=== PATIENT | female | born 1950 | race Caucasian/White ===

== ENCOUNTER 2016-08-05 20:57 | Emergency (ER) | payer MEDICARE, MEDICAID ==
[~2016-08-05] VITALS: Ht 157.5 cm; Wt 65.8 kg
[~2016-08-05 20:57] MED LIST: BENZ100C PO; LEVO750T5 PO; PRED50TA PO; PROAIR HFA8.5 GM INH
[2016-08-05 21:15] VITALS: BP 178/94
[2016-08-05] MEDS ORDERED: FAMO-63 PO (21:33)
[2016-08-05] MEDS ORDERED: PRED-220 PO (21:33)
--- NOTE | 2016-08-05 21:33 | PHYS DOC ---
Past Medical History Past Medical History: Cancer, Other Additional Past Medical Histor: cervical cancer Past Surgical History: Other Additional Past Surgical Histo: abd surgery Alcohol Use: None Drug Use: None Adult General Chief Complaint Chief Complaint: ITCHING HPI HPI Patient is a 65 year old female who presents with a poison sumac rash that began yesterday when she was walking in her yard. Patient states she normally has to receive a steroid shot as well as steroid taper dose to clear this rash. Review of Systems Review of Systems Constitutional: Denies fever or chills [] Eyes: Denies change in visual acuity, redness, or eye pain [] Musculoskeletal: Denies back pain or joint pain [] Integument: rash Neurologic: Denies headache, focal weakness or sensory changes [] Endocrine: Denies polyuria or polydipsia [] Current Medications Current Medications Current Medications Medications (Trade) Dose Ordered Sig/Jocelyn Start Time Stop Time Status Last Admin Dose Admin Dexamethasone Sodium Phosphate (Decadron) 10 mg 1X ONCE 08/05/16 22:00 08/05/16 22:01 Allergies Allergies Allergies Coded Allergies Type Severity Reaction Last Updated Verified codeine Adverse Reaction Mild vomiting 05/06/14 No Physical Exam Physical Exam Constitutional: Well developed, well nourished, no acute distress, non-toxic appearance. [] Skin: Patient has moderate amount of erythema and mild swelling to her face consistent with contact dermatitis. She does have mild erythema on her neck as well. Back: No tenderness, no CVA tenderness. [] Extremities: No tenderness, no cyanosis, no clubbing, ROM intact, no edema. [] Neurologic: Alert and oriented X 3, normal motor function, normal sensory function, no focal deficits noted. [] Psychologic: Affect normal, judgement normal, mood normal. [] Current Patient Data Vital Signs Vital Signs Date Time Temp Pulse Resp B/P (MAP) Pulse Ox O2 Delivery O2 Flow Rate FiO2 08/05/16 21:15 98.6 96 18 178/94 (122) 93 Room Air 98.6 EKG EKG [] Radiology/Procedures Radiology/Procedures [] Course & Med Decision Making Course & Med Decision Making Pertinent Labs and Imaging studies reviewed. (See chart for details) Patient has contact dermatitis rash due to poison sumac. She was given Decadron injection in the ED and discharged with tapered dose of Prednisone, Benadryl and Pepcid. She'll follow-up with her own PCP in 1-2 weeks. Brionna Disclaimer Brionna Disclaimer This electronic medical record was generated, in whole or in part, using a voice recognition dictation system. Departure Departure Impression: Primary Impression: Contact dermatitis Disposition: 01 HOME, SELF-CARE Condition: STABLE Referrals: NO PCP (PCP) Follow-up with your doctor in 2 weeks Patient Instructions: Contact Dermatitis, [id number] Additional Instructions: You were seen with contact dermatitis rash due to poison sumac. Take the prescribed medicines as ordered. Take Benadryl every 4 hours as needed for this rash. Scripts Famotidine (PEPCID) 20 Mg Tablet 20 MG PO DAILY, #14 TAB Prov: DARIUSZ HENDRICKS APRN 08/05/16 Prednisone (PREDNISONE) 10 Mg Tablet 10 MG PO UD for PREDNISONE TAPER, #39 TAB 0 Refills Take 3 tablets by mouth twice a day for 3 days, then take 2 tablets by mouth twice a day for 3 days, then take 1 tablet by mouth twice a day for 3 days, then take 1 tablet by mouth daily x 3 days, then stop. Prov: DARIUSZ HENDRICKS APRN 08/05/16 Problem Qualifiers Primary Impression: Contact dermatitis Contact dermatitis type: allergic Contact dermatitis trigger: non-food plants Qualified Codes: L23.7 - Allergic contact dermatitis due to plants, except food DARIUSZ HENDRICKS APRN Aug 05, 2016 21:33
[2016-08-05] MEDS ORDERED: DEXAMETHASONE SOD PHOS 20 MG/5 ML VIAL. IM ONE (22:00)
== END 2016-08-05 21:48 | disposition home or self-care (01) ==
LOC: ER 20:57
DX: L23.7 Allergic contact dermatitis due to plants, except food (principal); Z88.5 Allergy status to narcotic agent
CPT/HCPCS: 96372; 99283; J1100